=== PATIENT | female | born 1965 | race Hispanic/Latino ===

== ENCOUNTER 2018-03-25 09:44 | Emergency (ER) | payer MEDICAID ==
[2018-03-25 09:44] VITALS: BMI 30.8
[2018-03-25 10:08] VITALS: TEMP 98.5
--- NOTE | 2018-03-25 11:04 | ED PDOC ---
Arrival/HPI - General Chief Complaint: Abnormal Skin Integrity Time Seen by Provider: 03/25/18 10:30 Historian: Patient - History of Present Illness Narrative History of Present Illness (Text): 03/25/18 11:03 52-year-old female presents today with concerns for wound infection left buttocks. Patient states 4 weeks ago she had lipomas removed. Patient states she had one removed from the left buttocks and one removed from the right buttocks. Patient states over the past few days she's been having some is increasing pain over the site of the left buttocks lipoma removal. Patient states that she is concerned that there is an infection in the buttocks. Her partner states that she noticed some redness around the wound. There was no purulent discharge. Patient states that she had fever at home yesterday but denies fever today. Patient denies dizziness or weakness. No other complaints. Past Medical History - Provider Review Nursing Documentation Reviewed: Yes - Travel History Have you recently traveled outside [place] w/in the past 3 mons?: No - Infectious Disease Hx of Infectious Diseases: None - Past Medical History Past Medical History: No Previous - Cardiac Hx Cardiac Disorders: Yes Hx Hypertension: Yes - Pulmonary Hx Respiratory Disorders: Yes Hx Asthma: Yes Hx Bronchitis: Yes - Neurological Hx Neurological Disorder: No - HEENT Hx HEENT Disorder: No - Renal Hx Renal Disorder: No - Endocrine/Metabolic Hx Endocrine Disorders: Yes Hx Hypothyroidism: Yes - Hematological/Oncological Hx Blood Disorders: No - Integumentary Hx Dermatological Disorder: Yes Other/Comment: LIPOMA - Musculoskeletal/Rheumatological Hx Musculoskeletal Disorders: No - Gastrointestinal Hx Gastrointestinal Disorders: Yes Hx Gastroesophageal Reflux: Yes Other/Comment: HEARTBURN - Genitourinary/Gynecological Hx Genitourinary Disorders: No - Psychiatric Hx Psychophysiologic Disorder: No Hx Substance Use: No - Surgical History Hx Hysterectomy: Yes Hx Musculoskeletal Surgery: Yes Hx Orthopedic Surgery: Yes Other/Comment: breast augmentation, LIPOMA REMOVED - Anesthesia Hx Anesthesia: Yes Hx Anesthesia Reactions: Yes (nausea) Hx Malignant Hyperthermia: No - Suicidal Assessment Feels Threatened In Home Enviroment: No Family/Social History - Physician Review Nursing Documentation Reviewed: Yes Family/Social History: Unknown Family HX Smoking Status: Current Some Days Smoker Hx Alcohol Use: No Hx Substance Use: No Allergies/Home Meds Allergies/Adverse Reactions: Allergies azithromycin [From Zithromax Z-Bo] Allergy (Verified 03/25/18 10:00) RASH Penicillins Allergy (Verified 03/25/18 10:00) RASH Home Medications: Home Meds Medication Instructions Recorded Confirmed Albuterol HFA [Ventolin HFA 90 1 puff IH ASDIR PRN 08/19/17 03/25/18 mcg/actuation (8 g)] Losartan Potassium [Losartan 25 mg PO DAILY 03/25/18 03/25/18 Potassium] Review of Systems - Review of Systems Constitutional: Fevers (once yesterday; no fever today). absent: Fatigue Respiratory: absent: SOB, Cough Cardiovascular: absent: Chest Pain, Palpitations Gastrointestinal: absent: Abdominal Pain, Nausea, Vomiting Skin: Rash, Skin Lesions Neurological: absent: Headache, Dizziness Psychiatric: absent: Anxiety, Depression Physical Exam Vital Signs Reviewed: Yes Vital Signs Temp Pulse Resp BP Pulse Ox 03/25/18 10:02 98.5 F 100 H 16 136/86 97 Temperature: Afebrile Blood Pressure: Normal Pulse: Tachycardic Respiratory Rate: Normal Appearance: Positive for: Well-Appearing, Non-Toxic, Comfortable Pain Distress: None Mental Status: Positive for: Alert and Oriented X 3 - Systems Exam Head: Present: Atraumatic Neck: Present: Normal Range of Motion Respiratory/Chest: Present: Clear to Auscultation Cardiovascular: Present: Regular Rate and Rhythm Upper Extremity: Present: Normal ROM Lower Extremity: Present: Normal ROM Neurological: Present: GCS=15, Speech Normal Skin: Present: Warm, Dry, Other (left buttock; there is a 4cm linear scar noted with minimal surrounding erythema. no abscess noted. no purulent discharge. minimal tenderness. ) Psychiatric: Present: Alert, Oriented x 3 Medical Decision Making ED Course and Treatment: 03/25/18 11:06 52yr old female presenting with concerns for wound infection. states she has fever at home yesterday. afebrile. no distress. stable vitals. cbc: wnl cmp: wnl bactrim given PO toradol IM pt with slight erythema around wound; no purulent discharge. will d/c home on bactrim; advised f/u with surgeon within the next 2 days. advised immediate return if symptoms worsen,persist or if new symptoms develop. Patient verbalizes understanding of discharge instructions and need for immediate followup. Impression: Wound infection Tylenol every 4 hours as needed for pain Bactrim 1 tablet twice daily 7 days Apply bacitracin twice daily to the affected area Follow-up with the surgeon within the next 2 days Follow-up with the wound care center within the next 2 days Follow-up primary care physician within the next 2 days Return immediately if symptoms worsen persist or if new concerning symptoms develop - Lab Interpretations Lab Results: 03/25/18 11:30 03/25/18 11:30 Lab Results 03/25/18 11:30: WBC 5.4, RBC 4.20, Hgb 12.7, Hct 37.6, MCV 89.5, MCH 30.2, MCHC 33.8, RDW 12.0, Plt Count 176, MPV 9.8, Gran % 52.5, Lymph % (Auto) 38.7 H, [place] % (Auto) 7.3 H, Eos % (Auto) 1.3 L, Baso % (Auto) 0.2, Gran # 2.81, Lymph # (Auto) 2.1, [place] # (Auto) 0.4, Eos # (Auto) 0.1, Baso # (Auto) 0.01 03/25/18 11:30: Sodium 140, Potassium 4.1, Chloride 105, Carbon Dioxide 29, Anion Gap 10, BUN 12, Creatinine 0.5 L, Est GFR ( Amer) > 60, Est GFR ( Non-Af Amer) > 60, Random Glucose 99, Calcium 9.9, Total Bilirubin 0.5, AST 26, ALT 39, Alkaline Phosphatase 87, Total Protein 7.1, Albumin 4.1, Globulin 3.0, Albumin/Globulin Ratio 1.4 - Medication Orders Current Medication Orders: Discontinued Medications Ketorolac Tromethamine (Toradol) 30 mg IVP STAT STA Stop: 03/25/18 13:04 Last Admin: 03/25/18 13:06 Dose: 30 mg MAR Pain Assessment Document 03/25/18 13:06 EQ (Rec: 03/25/18 13:06 EQ [id number]) Pain Reassessment Is this a pain reassessment? No Sleep Is patient sleeping during reassessment? No Presence of Pain Presence of Pain Yes IVP Administration Document 03/25/18 13:06 EQ (Rec: 03/25/18 13:06 EQ [id number]) Charges for Administration # of IVP Administrations 1 Trimethoprim/Sulfamethoxazole (Bactrim Ds Tab) 1 tab PO STAT STA PRN Reason: Protocol Stop: 03/25/18 12:16 Last Admin: 03/25/18 13:02 Dose: 1 tab Disposition/Present on Arrival - Present on Arrival Any Indicators Present on Arrival: No History of DVT/PE: No History of Uncontrolled Diabetes: No Urinary Catheter: No History of Decub. Ulcer: No History Surgical Site Infection Following: None - Disposition Have Diagnosis and Disposition been Completed?: Yes Diagnosis: Wound infection Disposition: HOME/ ROUTINE Disposition Time: 11:01 Patient Plan: Discharge Patient Problems: Current Active Problems Problem Status Onset Wound infection Acute Condition: GOOD Discharge Instructions (ExitCare): Wound Infection Additional Instructions: Tylenol every 4 hours as needed for pain Bactrim 1 tablet twice daily 7 days Apply bacitracin twice daily to the affected area Follow-up with the surgeon within the next 2 days Follow-up with the wound care center within the next 2 days Follow-up primary care physician within the next 2 days Return immediately if symptoms worsen persist or if new concerning symptoms develop Prescriptions: Sulfamethoxazole/Trimethoprim [Bactrim DS 800 mg-160 mg] 1 tab PO BID #14 tab Referrals: [facility] [Outside] - Follow up with primary Tom Qiu MD [Staff Provider] - Follow up with primary Forms: [employer] ([place]ian), WORK NOTE
[2018-03-25 11:47] LABS: BASO # 0.01 K/mm3 (0.0-2.0); BASO % 0.2 % (0.0-3.0); EOS # 0.1 (0.0-0.7); EOS % 1.3 % (1.5-5.0); GRAN # 2.81 (1.4-6.5); GRAN % 52.5 % (50.0-68.0); HEMOGLOBIN 12.7 g/dL (12.0-16.0); LYMPH # 2.1 (1.2-3.4); LYMPH % 38.7 % (22.0-35.0); MEAN CELL VOLUME 89.5 fl (80.0-105.0); MEAN CORPUSCULAR HEMOGLOBIN 30.2 pg (25.0-35.0); MEAN CORPUSCULAR HGB CONC 33.8 g/dl (31.0-37.0); MEAN PLATELET VOLUME 9.8 fl (7.0-11.0); MONO # 0.4 (0.1-0.6); MONO % 7.3 % (1.0-6.0); RBC 4.2 10^6/uL (3.5-6.1); WHITE BLOOD COUNT 5.4 10^3/ul (4.5-11.0)
[2018-03-25 11:56] LABS: ALB/GLOB RATIO 1.4 (1.1-1.8); ALBUMIN 4.1 g/dL (3.0-4.8); ALT/SGPT 39 U/L (7-56); AST/SGOT 26 U/L (14-36); BLOOD UREA NITROGEN 12 mg/dL (7-21); CALCIUM 9.9 mg/dL (8.4-10.5); GFR NON-AFRICAN AMERICAN > 60
[2018-03-25] MEDS ORDERED: Tmp-Smz 800 mg-160 mg DS Tab PO STA (12:15)
[2018-03-25 13:31] VITALS: BP 131/82; PULSE 89; RESP 18; O2SAT 99
== END 2018-03-25 13:30 | disposition home or self-care (01) ==
LOC: ED 09:44
DX: T81.4XXA Infection following a procedure, initial encounter (principal); Y83.8 Other surgical procedures as the cause of abnormal reaction of the patient, or of later complication, without mention of misadventure at the time of the procedure; Y92.89 Other specified places as the place of occurrence of the external cause
CPT/HCPCS: 80053; 85025; 87040; 96374; 99283; J1885

== ENCOUNTER 2018-06-10 19:12 | Observation (INO) | payer MEDICAID ==
[2018-06-10 19:48] LABS: BASO # 0.02 K/mm3 (0.0-2.0); BASO % 0.3 % (0.0-3.0); EOS # 0.2 (0.0-0.7); EOS % 2.5 % (1.5-5.0); GRAN # 3.84 (1.4-6.5); LYMPH % 40.2 % (22.0-35.0); MEAN CELL VOLUME 90.4 fl (80.0-105.0); MEAN CORPUSCULAR HEMOGLOBIN 30.4 pg (25.0-35.0); MEAN CORPUSCULAR HGB CONC 33.6 g/dl (31.0-37.0); MEAN PLATELET VOLUME 10.1 fl (7.0-11.0); MONO # 0.5 (0.1-0.6); RBC 4.28 10^6/uL (3.5-6.1); RED CELL DISTRIBUTION WIDTH 13.4 % (11.5-14.5); WHITE BLOOD COUNT 7.5 10^3/uL (4.5-11.0)
[2018-06-10 19:52] LABS: INR 0.97; PARTIAL THROMBOPLASTIN TIME 26.9 Seconds (25.1-36.5)
[2018-06-10 19:54] LABS: BLOOD UREA NITROGEN 22 mg/dL (7-21); CALCIUM 9.3 mg/dL (8.4-10.5); GFR NON-AFRICAN AMERICAN > 60
[2018-06-10 19:57] LABS: ALB/GLOB RATIO 1.3 (1.1-1.8); ALBUMIN 4.2 g/dL (3.0-4.8); ALT/SGPT 27 U/L (7-56); AST/SGOT 30 U/L (14-36)
[2018-06-10] MEDS: Sodium Chloride 0.9% 1,000 ML IV SCH (20:07)
--- NOTE | 2018-06-10 20:18 | ED PDOC ---
Arrival/HPI - General Chief Complaint: Chest Pain Time Seen by Provider: 06/10/18 19:18 Historian: Patient - History of Present Illness Narrative History of Present Illness (Text): 06/10/18 19:25 Asha Jacobson is a 52 year old female, whose past medical history includes GERD, migraines, and hypothyroidism, who presents to the Emergency department complaining of chest pain. Patient states she has been experiencing chest pain with associated palpitations today. Patient was seen by her PMD for similar complaints and given a prescription for an echocardiogram. Patient denies any fever, chills, nausea, vomiting, diarrhea, urinary symptoms, back pain, neck pain, headache, dizziness, or any other complaints. Symptom Onset: Gradual Symptom Course: Unchanged Activities at Onset: Light Context: Home Past Medical History - Provider Review Nursing Documentation Reviewed: Yes - Infectious Disease Hx of Infectious Diseases: None - Past Medical History Past Medical History: No Previous - Cardiac Hx Pacemaker: No - Pulmonary Hx Respiratory Disorders: Yes Hx Asthma: Yes Hx Bronchitis: Yes - Neurological Hx Paralysis: No - HEENT Hx HEENT Disorder: No - Renal Hx Renal Disorder: No - Endocrine/Metabolic Hx Endocrine Disorders: Yes Hx Hypothyroidism: Yes - Hematological/Oncological Hx Blood Transfusions: No - Integumentary Hx Dermatological Disorder: Yes Other/Comment: LIPOMA - Musculoskeletal/Rheumatological Hx Musculoskeletal Disorders: No - Gastrointestinal Hx Gastrointestinal Disorders: Yes Hx Gastroesophageal Reflux: Yes Other/Comment: HEARTBURN - Genitourinary/Gynecological Hx Genitourinary Disorders: No - Psychiatric Hx Emotional Abuse: No Hx Physical Abuse: No Hx Substance Use: No - Surgical History Hx Hysterectomy: Yes Hx Musculoskeletal Surgery: Yes Hx Orthopedic Surgery: Yes Other/Comment: breast augmentation, LIPOMA REMOVED - Anesthesia Hx Anesthesia Reactions: Yes (nausea) Hx Malignant Hyperthermia: No - Suicidal Assessment Feels Threatened In Home Enviroment: No Family/Social History - Physician Review Nursing Documentation Reviewed: Yes Family/Social History: Unknown Family HX Smoking Status: Current Some Days Smoker Hx Alcohol Use: No Hx Substance Use: No Allergies/Home Meds Allergies/Adverse Reactions: Allergies azithromycin [From Zithromax Z-Bo] Allergy (Verified 06/10/18 19:19) RASH Penicillins Allergy (Verified 06/10/18 19:19) RASH Home Medications: Home Meds Medication Instructions Recorded Confirmed Albuterol HFA [Ventolin HFA 90 1 puff IH ASDIR PRN 08/19/17 06/11/18 mcg/actuation (8 g)] Losartan Potassium 25 mg PO DAILY 03/25/18 06/11/18 Methimazole [Tapazole] 5 mg PO DAILY 04/22/18 06/11/18 Alprazolam [Xanax] 2 tab PO HS 06/11/18 06/11/18 Review of Systems - Physician Review All systems were reviewed & negative as marked: Yes - Review of Systems Constitutional: Normal. absent: Fevers Eyes: Normal ENT: Normal Respiratory: Normal. absent: SOB, Cough Cardiovascular: Chest Pain, Palpitations Gastrointestinal: Normal. absent: Abdominal Pain, Diarrhea, Nausea, Vomiting Genitourinary Female: Normal. absent: Dysuria, Frequency, Hematuria, Urine Output Changes Musculoskeletal: Normal. absent: Back Pain, Neck Pain Skin: Normal. absent: Rash Neurological: Normal. absent: Headache, Dizziness Endocrine: Normal Hemo/Lymphatic: Normal Psychiatric: Normal Physical Exam Vital Signs Reviewed: Yes Vital Signs Temp Pulse Resp BP Pulse Ox 06/10/18 19:32 98.4 F 84 18 139/92 H 98 Temperature: Afebrile Blood Pressure: Normal Pulse: Regular Respiratory Rate: Normal Appearance: Positive for: Well-Appearing, Non-Toxic, Comfortable Pain Distress: None Mental Status: Positive for: Alert and Oriented X 3 - Systems Exam Head: Present: Atraumatic, Normocephalic Pupils: Present: PERRL Extroacular Muscles: Present: EOMI Conjunctiva: Present: Normal Mouth: Present: Moist Mucous Membranes Neck: Present: Normal Range of Motion Respiratory/Chest: Present: Clear to Auscultation, Good Air Exchange. No: Respiratory Distress, Accessory Muscle Use Cardiovascular: Present: Regular Rate and Rhythm, Normal S1, S2. No: Murmurs Abdomen: No: Tenderness, Distention, Peritoneal Signs Back: Present: Normal Inspection Upper Extremity: Present: Normal Inspection. No: Cyanosis, Edema Lower Extremity: Present: Normal Inspection. No: Edema Neurological: Present: GCS=15, CN II-XII Intact, Speech Normal Skin: Present: Warm, Dry, Normal Color. No: Rashes Psychiatric: Present: Alert, Oriented x 3, Normal Insight, Normal Concentration Medical Decision Making ED Course and Treatment: 06/10/18 19:25 Impression: 52 year old female complaining of chest pain and palpitations. Plan: -- EKG -- Chest X-ray -- Labs, cardiac enzymes, T4, TSH -- Urinalysis -- IV fluids -- Reassess and disposition Prior Visits: Notes and results from previous visits were reviewed. Progress Notes: Reviewed EKG, NSR at 84 bpm. Non-specific ST/T wave changes. 06/10/18 23:00 Chest X-ray reviewed shows, no acute processes. 06/10/18 23:10 Case discussed with medical collections and Dr. Doyle, who agrees with plan. Pt will go to remote telemetry observation for chest pain under the hospitalist service. - Lab Interpretations Lab Results: 06/10/18 19:30 06/10/18 19:30 Lab Results 06/10/18 19:30: PT 11.0, INR 0.97, APTT 26.9 06/10/18 19:30: Sodium 137, Potassium 4.8, Chloride 105, Carbon Dioxide 25, Anion Gap 11, BUN 22 H, Creatinine 0.6 L, Est GFR ( Amer) > 60, Est GFR (Non-Af Amer) > 60, Random Glucose 112 H, Calcium 9.3, Total Bilirubin 0.5, AST 30, ALT 27, Alkaline Phosphatase 111, Lactate Dehydrogenase 620, Total Creatine Kinase 69, Troponin I Pending, Total Protein 7.5, Albumin 4.2, Globulin 3.3, Albumin/Globulin Ratio 1.3 06/10/18 19:30: WBC 7.5, RBC 4.28, Hgb 13.0, Hct 38.7, MCV 90.4, MCH 30.4, MCHC 33.6, RDW 13.4, Plt Count 215, MPV 10.1, Gran % 51.0, Lymph % (Auto) 40.2 H, [place] % (Auto) 6.0, Eos % (Auto) 2.5, Baso % (Auto) 0.3, Gran # 3.84, Lymph # (Auto) 3.0, [place] # (Auto) 0.5, Eos # (Auto) 0.2, Baso # (Auto) 0.02 I have reviewed the lab results: Yes - RAD Interpretation Radiology Orders: 06/10/18 19:29 CHEST PORTABLE [RAD] Stat Ad Terminal Makeup Operator: ED Physician - EKG Interpretation Interpreted by ED Physician: Yes Type: 12 lead EKG - Medication Orders Current Medication Orders: Sodium Chloride (Sodium Chloride 0.9%) 1,000 mls @ 80 mls/hr IV .[id number] [id number] Last Admin: 06/10/18 20:07 Dose: 80 mls/hr eMAR Start Stop Document 06/10/18 20:07 CNR (Rec: 06/10/18 20:07 CNR [id number]) Intravenous Solution Start Date 06/10/18 Start Time 20:07 - Scribe Statement The provider has reviewed the documentation as recorded by the Rony Ferguson Provider Scribe Attestation: All medical record entries made by the Rony were at my direction and personally dictated by me. I have reviewed the chart and agree that the record accurately reflects my personal performance of the history, physical exam, medical decision making, and the department course for this patient. I have also personally directed, reviewed, and agree with the discharge instructions and disposition. Disposition/Present on Arrival - Present on Arrival Any Indicators Present on Arrival: No History of DVT/PE: No History of Uncontrolled Diabetes: No Urinary Catheter: No History of Decub. Ulcer: No History Surgical Site Infection Following: None - Disposition Have Diagnosis and Disposition been Completed?: Yes Diagnosis: Chest pain Disposition Time: 23:10 Condition: FAIR
[2018-06-10 20:27] LABS: T4 10.5 ug/dL (5.5-11.0)
[2018-06-10 20:28] LABS: TROPONIN I 0.01 ng/mL
[2018-06-10 21:42] LABS: PH,URINE 6.5 (4.7-8.0); URINE BILIRUBIN NEGATIVE (NEGATIVE); URINE BLOOD NEGATIVE (NEGATIVE); URINE GLUCOSE (UA) NEGATIVE (NEGATIVE); URINE LEUKOCYTE ESTERASE NEGATIVE Leu/uL (NEGATIVE); URINE PROTEIN NEGATIVE mg/dL (<30 mg/dL); URINE UROBILINOGEN 0.2 E.U./dL (<1 E.U./dL)
[2018-06-10 21:45] LABS: URINE APPEARANCE CLEAR (CLEAR); URINE COLOR YELLOW (YELLOW)
[2018-06-10] MEDS ORDERED: Aspirin 325 mg EC Tablets PO STA (21:58)
--- NOTE | 2018-06-11 00:40 | CP.PCM.HP ---
<Ailyn Mckee - Last Filed: 06/11/18 05:53> History of Present Illness - History of Present Illness History of Present Illness: Ailyn Mckee, PGY1 Hospital H&P This is a 52 year old female with PMH of anxiety, GERD, migraines, asthma, right leg sciatica, HTN and hyperthyroidism presenting to the ED for one day history of chest pressure. Patient states she was diagnosed with hyperthyroidism 2 months ago by her PMD and started on 5mg methimazole and saw her meter tester polyphase yesterday who increased patient's methimazole to 20mg daily and started patient on propanolol 20mg BID. Patient states she started her first dose of both medications earlier today afternoon and within an hour began to feel chest pressure that was characterized as dull, non radiating, intermittnat, rated 8/10, better with warm compresses and worse with deep breathing. She denies ever having similar pain past. Symptoms are associated with nausea and vomiting x2 non bloody. She also states she was diagnosed with strep throat one week ago and treated with clindamycin. She denies CP, SOB, headaches, fevers, chills, abdominal pain, diarrhea, constipation, numbness, tingling, swelling, urinary complaints, recent travel, trauma and lifestyle change. 12 point ROS noted here, otherwise unremarkable. PMD: Dr. Robison at [facility] Medical Record Transcriber: Dr. Rm PMH: anxiety, GERD, migraines, asthma, right leg sciatica and hyperthyroidism SH: 1-2 ciggs/per day for the last 5 years, denies drinking and drugs Sx: hysterectomy 3 years ago, metal plate in right foot 3 months ago All: PCN, azithromycin. Gets rash FH: denies Meds: methimazole, xanax, losartan Present on Admission - Present on Admission Any Indicators Present on Admission: No Past Patient History - Infectious Disease Hx of Infectious Diseases: None - Past Medical History & Family History Past Medical History?: Yes - Past Social History Smoking Status: Current Some Days Smoker - CARDIAC Hx Pacemaker: No - PULMONARY Hx Respiratory Disorders: Yes Hx Asthma: Yes Hx Bronchitis: Yes - NEUROLOGICAL Hx Paralysis: No - HEENT Hx HEENT Problems: No - RENAL Hx Chronic Kidney Disease: No - ENDOCRINE/METABOLIC Hx Endocrine Disorders: Yes Hx Hypothyroidism: Yes - HEMATOLOGICAL/ONCOLOGICAL Hx Blood Transfusions: No - INTEGUMENTARY Hx Dermatological Problems: Yes Other/Comment: LIPOMA - MUSCULOSKELETAL/RHEUMATOLOGICAL Hx Musculoskeletal Disorders: No - GASTROINTESTINAL Hx Gastrointestinal Disorders: Yes Hx Gastroesophageal Reflux: Yes Other/Comment: HEARTBURN - GENITOURINARY/GYNECOLOGICAL Hx Genitourinary Disorders: No - PSYCHIATRIC Hx Emotional Abuse: No Hx Physical Abuse: No Hx Substance Use: No - SURGICAL HISTORY Hx Hysterectomy: Yes Hx Musculoskeletal Surgery: Yes Hx Orthopedic Surgery: Yes Other/Comment: breast augmentation, LIPOMA REMOVED - ANESTHESIA Hx Anesthesia Reactions: Yes (nausea) Hx Malignant Hyperthermia: No Meds Allergies/Adverse Reactions: Allergies Allergy/AdvReac Type Severity Reaction Status Date / Time azithromycin Allergy RASH Verified 06/10/18 19:19 [From Zithromax Z-Bo] Penicillins Allergy RASH Verified 06/10/18 19:19 Physical Exam - Constitutional Appears: No Acute Distress - Head Exam Head Exam: ATRAUMATIC, NORMAL INSPECTION - Eye Exam Eye Exam: EOMI Pupil Exam: PERRL - ENT Exam ENT Exam: Mucous Membranes Moist - Respiratory Exam Respiratory Exam: Clear to Auscultation Bilateral. absent: Accessory Muscle Use, Wheezes, Respiratory Distress - Cardiovascular Exam Cardiovascular Exam: REGULAR RHYTHM, +S1, +S2 - GI/Abdominal Exam GI & Abdominal Exam: Normal Bowel Sounds, Soft. absent: Distended, Firm, Guarding, Tenderness - Extremities Exam Extremities exam: Positive for: normal inspection, pedal pulses present. Negative for: calf tenderness - Neurological Exam Neurological exam: Alert, Oriented x3 - Skin Skin Exam: Normal Color, Warm Results - Vital Signs Recent Vital Signs: Last Vital Signs Temp 98.4 F 06/10/18 19:32 Pulse 72 06/10/18 23:29 Resp 17 06/10/18 23:29 BP 135/82 06/10/18 23:29 Pulse Ox 97 06/10/18 23:29 - Labs Result Diagrams: 06/10/18 19:30 06/10/18 19:30 Labs: Laboratory Results - last 24 hr 06/10/18 06/10/18 06/10/18 19:30 19:30 19:30 WBC 7.5 RBC 4.28 Hgb 13.0 Hct 38.7 MCV 90.4 MCH 30.4 MCHC 33.6 RDW 13.4 Plt Count 215 MPV 10.1 Gran % 51.0 Lymph % (Auto) 40.2 H [place] % (Auto) 6.0 Eos % (Auto) 2.5 Baso % (Auto) 0.3 Gran # 3.84 Lymph # (Auto) 3.0 [place] # (Auto) 0.5 Eos # (Auto) 0.2 Baso # (Auto) 0.02 PT 11.0 INR 0.97 APTT 26.9 Sodium 137 Potassium 4.8 Chloride 105 Carbon Dioxide 25 Anion Gap 12 BUN 22 H Creatinine 0.6 L Est GFR ( Amer) > 60 Est GFR (Non-Af Amer) > 60 Random Glucose 112 H Calcium 9.3 Total Bilirubin 0.5 AST 30 ALT 27 Alkaline Phosphatase 111 Lactate Dehydrogenase 620 Total Creatine Kinase 69 Troponin I 0.01 Total Protein 7.5 Albumin 4.2 Globulin 3.3 Albumin/Globulin Ratio 1.3 Thyroxine (T4) TSH 3rd Generation Urine Color Urine Appearance Urine pH Ur Specific [place] Urine Protein Urine Glucose (UA) Urine Ketones Urine Blood Urine Nitrate Urine Bilirubin Urine Urobilinogen Ur Leukocyte Esterase 06/10/18 06/10/18 19:30 21:38 WBC RBC Hgb Hct MCV MCH MCHC RDW Plt Count MPV Gran % Lymph % (Auto) [place] % (Auto) Eos % (Auto) Baso % (Auto) Gran # Lymph # (Auto) [place] # (Auto) Eos # (Auto) Baso # (Auto) PT INR APTT Sodium Potassium Chloride Carbon Dioxide Anion Gap BUN Creatinine Est GFR ( Amer) Est GFR (Non-Af Amer) Random Glucose Calcium Total Bilirubin AST ALT Alkaline Phosphatase Lactate Dehydrogenase Total Creatine Kinase Troponin I Total Protein Albumin Globulin Albumin/Globulin Ratio Thyroxine (T4) 10.5 TSH 3rd Generation < 0.02 L Urine Color Yellow Urine Appearance Clear Urine pH 6.5 Ur Specific [place] 1.020 Urine Protein Negative Urine Glucose (UA) Negative Urine Ketones Negative Urine Blood Negative Urine Nitrate Negative Urine Bilirubin Negative Urine Urobilinogen 0.2 Ur Leukocyte Esterase Negative Assessment & Plan - Assessment and Plan (Free Text) Assessment: This is a 52 year old female with PMH of anxiety, GERD, migraines, asthma, right leg sciatica, HTN and hyperthyroidism presenting to the ED for one day history of chest pressure. Plan: Chest pressure -initial EKG showed NSR at 84bpm with no ST depression/elevations -initial troponin <0.01 -serial EKG, troponins pending -lipid panel, A1c pending -echo pending -ASA 81, lipitor 20 -Cardio on consult, Dr. Brennan Hx of hyperthyroidism -low TSH, high/normal T4 -continue methimazole -holding propanolol -endo on consult, Dr. Russell Hx of anxiety -continue xanax Hx of asthma -duonebs prn Hx of HTN -continue losartan PPX with SCD and pepcid HHD Patient seen and case discussed with attending, Dr. Doyle <John Doyle - Last Filed: 06/12/18 07:01> Results - Vital Signs Recent Vital Signs: Last Vital Signs Temp 97.6 F 06/12/18 06:00 Pulse 74 06/12/18 06:00 Resp 20 06/12/18 06:00 BP 124/82 06/12/18 06:00 Pulse Ox 96 06/12/18 06:00 - Labs Result Diagrams: 06/12/18 06:00 06/12/18 06:00 Labs: Laboratory Results - last 24 hr 06/11/18 06/11/18 06/12/18 05:30 12:05 06:00 WBC 4.7 RBC 4.05 Hgb 12.3 Hct 37.2 MCV 91.9 MCH 30.4 MCHC 33.1 RDW 13.0 Plt Count 163 MPV 10.3 Gran % 54.5 Lymph % (Auto) 37.2 H [place] % (Auto) 5.1 Eos % (Auto) 3.0 Baso % (Auto) 0.2 Gran # 2.55 Lymph # (Auto) 1.7 [place] # (Auto) 0.2 Eos # (Auto) 0.1 Baso # (Auto) 0.01 Sodium Potassium Chloride Carbon Dioxide Anion Gap BUN Creatinine Est GFR ( Amer) Est GFR (Non-Af Amer) Random Glucose Hemoglobin A1c 5.1 Calcium Total Bilirubin AST ALT Alkaline Phosphatase Total Protein Albumin Globulin Albumin/Globulin Ratio Free T4 1.98 06/12/18 06:00 WBC RBC Hgb Hct MCV MCH MCHC RDW Plt Count MPV Gran % Lymph % (Auto) [place] % (Auto) Eos % (Auto) Baso % (Auto) Gran # Lymph # (Auto) [place] # (Auto) Eos # (Auto) Baso # (Auto) Sodium 141 Potassium 3.9 Chloride 109 H Carbon Dioxide 28 Anion Gap 8 L BUN 14 Creatinine 0.6 L Est GFR ( Amer) > 60 Est GFR (Non-Af Amer) > 60 Random Glucose 93 Hemoglobin A1c Calcium 9.5 Total Bilirubin 0.4 AST 21 ALT 24 Alkaline Phosphatase 97 Total Protein 6.6 Albumin 3.7 Globulin 2.9 Albumin/Globulin Ratio 1.3 Free T4 Attending/Attestation - Attestation I have personally seen and examined this patient.: Yes I have fully participated in the care of the patient.: Yes I have reviewed all pertinent clinical information: Yes
[2018-06-11] MEDS ORDERED: Albuterol-Ipratrop 3 mg / 0.5 (3 ml) UD IH PRN (00:47)
[2018-06-11 05:45] LABS: BASO # 0.02 K/mm3 (0.0-2.0); BASO % 0.4 % (0.0-3.0); EOS # 0.2 (0.0-0.7); GRAN # 2.23 (1.4-6.5); GRAN % 46.5 % (50.0-68.0); HEMOGLOBIN 12.6 g/dL (12.0-16.0); LYMPH # 2.1 (1.2-3.4); LYMPH % 43.1 % (22.0-35.0); MEAN CORPUSCULAR HEMOGLOBIN 30.6 pg (25.0-35.0); MEAN CORPUSCULAR HGB CONC 33.6 g/dl (31.0-37.0); MEAN PLATELET VOLUME 9.6 fl (7.0-11.0); MONO # 0.3 (0.1-0.6); RBC 4.12 10^6/uL (3.5-6.1); RED CELL DISTRIBUTION WIDTH 13.4 % (11.5-14.5); WHITE BLOOD COUNT 4.8 10^3/uL (4.5-11.0)
[2018-06-11 06:09] LABS: LDL CHOLESTEROL 82 mg/dL (0-129); TROPONIN I < 0.01 ng/mL
[2018-06-11 06:11] LABS: ALB/GLOB RATIO 1.2 (1.1-1.8); ALBUMIN 3.6 g/dL (3.0-4.8); ALT/SGPT 29 U/L (7-56); AST/SGOT 22 U/L (14-36); BLOOD UREA NITROGEN 16 mg/dL (7-21); CALCIUM 9.7 mg/dL (8.4-10.5); GFR NON-AFRICAN AMERICAN > 60; HDL CHOLESTEROL 101 mg/dL (29-60)
[2018-06-11] MEDS: Sodium Chloride 0.9% 1,000 ML IV SCH ×2 (07:53→21:13)
--- NOTE | 2018-06-11 09:30 | CARD ---
APPROVED REPORT Date of service: 06/10/2018 EKG Measurement Heart [id number] <Conclusion> Normal sinus rhythm ST abnormalit in lateral leads Abnormal ECG
[2018-06-11] MEDS ORDERED: methIMAzole 5 MG TAB PO SCH (10:00)
--- NOTE | 2018-06-11 11:19 | RAD ---
Date of service: 06/10/2018 HISTORY: cp COMPARISON: Chest portable chest 04/05/2016. FINDINGS: LUNGS: No active pulmonary disease. PLEURA: No significant pleural effusion identified, no pneumothorax apparent. CARDIOVASCULAR: No aortic atherosclerotic calcification present. Normal cardiac size. No pulmonary vascular congestion. OSSEOUS STRUCTURES: No significant abnormalities. VISUALIZED UPPER ABDOMEN: Normal. OTHER FINDINGS: None. IMPRESSION: No interval acute cardiopulmonary disease appreciated.
--- NOTE | 2018-06-11 14:23 | CON ---
DATE: 06/11/2018 REASON FOR CONSULTATION: Palpitation and dizziness. HISTORY OF PRESENT ILLNESS: The patient is 52 year old female who is recently diagnosed with hyperthyroidism and her Tapazole dose was increased to 20 mg recently as well as addition of Inderal. The patient did experience lightheadedness, palpitation, nausea and vomiting after that increase in her medications and presented to the emergency room. The patient is unaware of any history of atrial fibrillation. The patient stated that the diagnosis of hyperthyroidism was made recently in her outpatient office and did not have any workup for her hyperthyroidism, such as nuclear scan or ultrasound. The patient underwent the blood test as part of screening and was taken to surgery where old screws in her right foot apparently are getting under the sole of her foot directly. SOCIAL HISTORY: Nonsmoker. MEDICATIONS: Aspirin 81 mg once a day, Cozaar 25 mg once a day, Lipitor 20 mg once a day, normal saline 80 mL an hour, Pepcid 20 mg at bedtime, Tapazole 5 mg daily, Xanax 0.5 mg three times a day. PHYSICAL EXAMINATION: GENERAL: The patient is a middle-aged female who does not appear to be in any distress. VITAL SIGNS: Blood pressure 91/27, heart rate 81, respirations 16, temperature 98.4. HEENT: Normocephalic. NECK: Diffuse goiter. CHEST: Clear. HEART: S1 and S2 regular. EXTREMITIES: No edema. LABORATORY DATA: Today's hemoglobin, hematocrit, white count and platelet count are within normal limits. Today's drug screen is positive for opioids and benzodiazepines. Today's SMA-7: Sodium 139, potassium 4.5, chloride 110, CO2 of 29, glucose 95, BUN 16, creatinine 0.8. Three sets of troponin are negative. EKG revealed sinus rhythm with nonspecific ST segment changes. TSH less than 0.02, T4 is 10.5. ASSESSMENT: 1. Hyperthyroidism. 2. Rule out paroxysmal atrial fibrillation. 3. Atypical chest pain, myocardial infarction is ruled out. 4. Hypertension. RECOMMENDATIONS: Continue current aspirin, Lipitor, albuterol, Tapazole, , as well as thyroid ultrasound. Nomi Brennan MD
[2018-06-11 14:35] VITALS: BMI 29.5
[2018-06-11] MEDS ORDERED: Pneumococcal 23-Valent Vaccine IM ONE (14:36)
[2018-06-11] MEDS ORDERED: Influenza Vaccine 60 mcg/0.5 mL SYR (4YR UP) IM ONE (14:36)
--- NOTE | 2018-06-11 15:21 | CP.PCM.PN ---
Subjective - Date & Time of Evaluation Date of Evaluation: 06/11/18 Time of Evaluation: 08:45 - Subjective Subjective: Internal medicine progress note for Dr. Hickman Patient seen and examined this am at bedside. She states she is feeling somewhat better and denies chest pain, SOB confusion, dizziness , abdominal pain, n/v, f/c and extremity pain or weakness. She does continue to endorse intermittent palpitations and chest tightness. Objective - Vital Signs/Intake and Output Vital Signs (last 24 hours): Temp Pulse Resp BP Pulse Ox 98.4 F 75 17 91/27 L 97 06/10/18 19:32 06/11/18 13:40 06/11/18 13:40 06/11/18 09:16 06/11/18 06:03 - Medications Medications: Current Medications Albuterol/Ipratropium (Duoneb 3 Mg/0.5 Mg (3 Ml) Ud) 3 ml IH Q2H PRN PRN Reason: Shortness of Breath Alprazolam (Xanax) 0.25 mg PO TID PRN; Protocol PRN Reason: Anxiety Stop: 06/18/18 10:01 Last Admin: 06/11/18 09:28 Dose: 0.25 mg Aspirin (Aspirin Chewable) 81 mg PO DAILY [facility] Last Admin: 06/11/18 09:16 Dose: 81 mg Atorvastatin Calcium (Lipitor) 20 mg PO DIN JORGE Famotidine (Pepcid) 40 mg PO HS [facility] Sodium Chloride (Sodium Chloride 0.9%) 1,000 mls @ 80 mls/hr IV .[id number] [facility] Last Admin: 06/11/18 07:53 Dose: 80 mls/hr Losartan Potassium (Cozaar) 25 mg PO DAILY [facility] Last Admin: 06/11/18 09:16 Dose: Not Given Methimazole (Tapazole) 5 mg PO BID [facility] - Labs Labs: 06/11/18 05:30 06/11/18 05:30 PT 11.0 SECONDS (9.4-12.5) 06/10/18 19:30 INR 0.97 06/10/18 19:30 APTT 26.9 Seconds (25.1-36.5) 06/10/18 19:30 - Constitutional Appears: Well, Non-toxic, No Acute Distress - Head Exam Head Exam: ATRAUMATIC, NORMOCEPHALIC - Eye Exam Eye Exam: EOMI - ENT Exam ENT Exam: Mucous Membranes Moist - Respiratory Exam Respiratory Exam: NORMAL BREATHING PATTERN - Cardiovascular Exam Cardiovascular Exam: REGULAR RHYTHM. absent: Tachycardia, Murmur - GI/Abdominal Exam GI & Abdominal Exam: Soft. absent: Distended, Guarding, Tenderness - Extremities Exam Extremities Exam: absent: Calf Tenderness, Pedal Edema - Neurological Exam Neurological Exam: Alert, Awake, Oriented x3 - Psychiatric Exam Psychiatric exam: Normal Affect, Normal Mood - Skin Skin Exam: Dry, Intact, Normal Color, Warm. absent: Diaphoretic Assessment and Plan - Assessment and Plan (Free Text) Assessment: 52 yr old female with hyperthyroidism recently started on propanolol c/o chest tightness
[2018-06-11] MEDS: methIMAzole 5 MG TAB PO SCH (18:30)
--- NOTE | 2018-06-11 19:06 | CON ---
DATE: 06/11/2018 HISTORY OF PRESENT ILLNESS: This is a 52-year-old female, admitted with sudden onset of precordial chest pain and severe and progressive shortness of breath, especially on exertion and was admitted for further workup and management and is being referred also for endocrine evaluation of known history of hyperthyroidism, diagnosed about 2 months ago. She is being seen at this time by her die set up worker, Dr. Burton, locally in [place] and was actually seen yesterday and dose adjustments were undertaken and the Tapazole was increased to 20 mg daily with propranolol started at 20 mg b.i.d. History of hypertension and dyslipidemia, history of generalized anxiety with frequent migraine headaches, history of lumbar disc disease with right leg sciatica and low back pain, history of chronic gastritis and GERD as noted. FAMILY HISTORY: Positive for hypertension and heart disease. SOCIAL HISTORY: The patient smokes a few cigarettes a day for the last few years. No other known substance use. REVIEW OF SYSTEMS: Admits to generalized body weakness with episodic bouts of dizziness and lightheadedness, worse on the day of admission, and this sudden onset of precordial chest pain with progressive shortness of breath also on exertion, also admits to occasional palpitations as noted. Her oral intake has been variable with nausea, dyspepsia, and vague upper abdominal pains. No recent alterations of bowel and urinary patterns. PHYSICAL EXAMINATION: GENERAL: This is an average built female in no apparent distress with a blood pressure of 140/80, pulse of 100 beats per minute, regular, temperature 98, respirations 20, height is 5 feet 9 inches, weight is 200 pounds. HEENT: Head, normocephalic. Eyes, anicteric with pink conjunctivae. Fundoscopy not possible at this time. Ears, nose and throat, otherwise normal. NECK: Supple. Thyroid gland is normal in size. Normal carotid bruits or cervical adenopathy. CARDIOPULMONARY: Some adynamic precordium. S1, S2, is rapid and regular. LUNGS: Clear to auscultation. ABDOMEN: Flat, soft with positive bowel sounds. EXTREMITIES: No peripheral edema. Pulses are +2 bilaterally. LABORATORY DATA: Her chemistries showed a thyroxine of 10.5 with a TSH of less than 0.02 and a free T4 of 1.98. Her chemistries, BUN 16, sodium 139, potassium 4.5, chloride 110, CO2 of 29, glucose 95, and creatinine 0.6. Her troponin is less than 0.01 ASSESSMENT: This is a 52-year-old female with subclinical hyperthyroidism noted on admission, presenting here with sudden onset of precordial chest pain with shortness of breath and currently undergoing cardiac workup and management and is being referred also for Endocrine evaluation and management. PLAN OF MANAGEMENT: We will clearly need a smaller dose titration of her Tapazole to 5 mg t.i.d. to start today, as detailed orders have been given. We will hold off huge dose adjustments to obviate her aforementioned symptoms as mentioned. However, with the current condition, she can also remain hyperadrenergic causing the aforementioned symptoms as given. We will obtain a thyroid stimulating immunoglobulin and a thyroid peroxidase antibody, which will confirm and/or indicate the presence of underlying thyroid autoimmunity. We will obtain serial chemistries and supplement accordingly as needed. We will follow. Nena Russell MD
[2018-06-12 06:41] LABS: BASO # 0.01 K/mm3 (0.0-2.0); BASO % 0.2 % (0.0-3.0); EOS # 0.1 (0.0-0.7); GRAN # 2.55 (1.4-6.5); GRAN % 54.5 % (50.0-68.0); HEMOGLOBIN 12.3 g/dL (12.0-16.0); LYMPH # 1.7 (1.2-3.4); LYMPH % 37.2 % (22.0-35.0); MEAN CELL VOLUME 91.9 fl (80.0-105.0); MEAN CORPUSCULAR HEMOGLOBIN 30.4 pg (25.0-35.0); MEAN CORPUSCULAR HGB CONC 33.1 g/dl (31.0-37.0); MEAN PLATELET VOLUME 10.3 fl (7.0-11.0); MONO # 0.2 (0.1-0.6); MONO % 5.1 % (1.0-6.0); RBC 4.05 10^6/uL (3.5-6.1); WHITE BLOOD COUNT 4.7 10^3/uL (4.5-11.0)
[2018-06-12 06:54] VITALS: BP 124/82; RESP 20; TEMP 97.6; O2SAT 96
[2018-06-12 06:59] LABS: ALB/GLOB RATIO 1.3 (1.1-1.8); ALBUMIN 3.7 g/dL (3.0-4.8); ALT/SGPT 24 U/L (7-56); AST/SGOT 21 U/L (14-36); BLOOD UREA NITROGEN 14 mg/dL (7-21); CALCIUM 9.5 mg/dL (8.4-10.5); GFR NON-AFRICAN AMERICAN > 60
[2018-06-12] MEDS: methIMAzole 5 MG TAB PO SCH (09:25)
--- NOTE | 2018-06-12 11:20 | PN ---
DATE: 06/12/2018 ENDO FOLLOWUP NOTE SUBJECTIVE: This is a 52-year-old female with known history of hyperthyroidism admitted here with sudden onset of precordial chest pain and shortness of breath and currently undergoing cardiac workup and management and is also being followed closely for metabolic management. She remains clinically euthyroid and biochemically has evidence of early subclinical hyperthyroxinemia as noted. Her repeat thyroid studies showed a T4 of 10.5 with a TSH of less than 0.02 and a free T4 of 1.98. Her chemistry showed a BUN of 14, sodium 141, potassium 3.9, chloride 109, CO2 28, glucose 93 and creatinine 0.6. ASSESSMENT This is a 52-year-old female with known history of hyperthyroidism, most likely related to underlying autoimmune thyroiditis or Graves disease, currently being followed by planning specialist in [place] with recent dose adjustments of much higher dosing of 20 mg daily for which the patient developed some adverse reactions, prompted this current admission. PLAN OF MANAGEMENT: As discussed with the patient lengthily, the imperative need to follow very closely with her planning specialist for both metabolic and clinical evaluation of the endocrine viewpoint has to be continued and undertaken at this time. For inpatient management, we will give her only a very low dosing of the Tapazole at 5 mg twice daily after meals to start today as ordered. We will obtain serial chemistries and supplement accordingly as needed. We will also obtain thyroid antibodies, which will confirm and/or indicate the presence of underlying thyroid . We will follow with you. Nena Russell MD
--- NOTE | 2018-06-12 13:15 | CP.PCM.DIS ---
<ZiggyJanelle - Last Filed: 06/13/18 13:42> Provider - Provider Date of Admission: 06/10/18 23:06 Attending physician: Blanca Wing MD Consults: 06/10/18 23:57 Cardiology Consult Routine Comment: Consulting Provider: Nomi Brennan Consulting Physician: Nomi Brennan Reason for Consult: chest pain 06/11/18 00:49 Endocrinology Consult Routine Comment: Consulting Provider: Nena Russell Consulting Physician: Nena Russell Reason for Consult: hyperthyroidism 06/11/18 13:44 Social Work Referral Routine Comment: d/c plan Physician Instructions: Reason For Exam: eval 06/11/18 14:36 Inpatient GLUING MACHINE OPERATOR ELECTRONIC Core Measures Referral Routine Comment: chest pain Physician Instructions: Reason For Exam: eval Respiratory Therapy Referral Routine Comment: smokes 1 cig a day Physician Instructions: Reason For Exam: eval Transition In Care/Readmission Reduction Routine Comment: chest pain Physician Instructions: Reason For Exam: eval Time Spent in preparation of Discharge (in minutes): 45 Hospital Course - Lab Results Lab Results: Most Recent Lab Values WBC 4.7 10^3/uL (4.5-11.0) 06/12/18 06:00 RBC 4.05 10^6/uL (3.5-6.1) 06/12/18 06:00 Hgb 12.3 g/dL (12.0-16.0) 06/12/18 06:00 Hct 37.2 % (36.0-48.0) 06/12/18 06:00 MCV 91.9 fl (80.0-105.0) 06/12/18 06:00 MCH 30.4 pg (25.0-35.0) 06/12/18 06:00 MCHC 33.1 g/dl (31.0-37.0) 06/12/18 06:00 RDW 13.0 % (11.5-14.5) 06/12/18 06:00 Plt Count 163 10^3/uL (120.0-450.0) 06/12/18 06:00 MPV 10.3 fl (7.0-11.0) 06/12/18 06:00 Gran % 54.5 % (50.0-68.0) 06/12/18 06:00 Lymph % (Auto) 37.2 % (22.0-35.0) H 06/12/18 06:00 [place] % (Auto) 5.1 % (1.0-6.0) 06/12/18 06:00 Eos % (Auto) 3.0 % (1.5-5.0) 06/12/18 06:00 Baso % (Auto) 0.2 % (0.0-3.0) 06/12/18 06:00 Gran # 2.55 (1.4-6.5) 06/12/18 06:00 Lymph # (Auto) 1.7 (1.2-3.4) 06/12/18 06:00 [place] # (Auto) 0.2 (0.1-0.6) 06/12/18 06:00 Eos # (Auto) 0.1 (0.0-0.7) 06/12/18 06:00 Baso # (Auto) 0.01 K/mm3 (0.0-2.0) 06/12/18 06:00 PT 11.0 SECONDS (9.4-12.5) 06/10/18 19:30 INR 0.97 06/10/18 19:30 APTT 26.9 Seconds (25.1-36.5) 06/10/18 19:30 Sodium 141 mmol/L (132-148) 06/12/18 06:00 Potassium 3.9 mmol/L (3.6-5.0) 06/12/18 06:00 Chloride 109 mmol/L (98-107) H 06/12/18 06:00 Carbon Dioxide 28 mmol/L (21-33) 06/12/18 06:00 Anion Gap 8 (10-20) L 06/12/18 06:00 BUN 14 mg/dL (7-21) 06/12/18 06:00 Creatinine 0.6 mg/dl (0.7-1.2) L 06/12/18 06:00 Est GFR ( Amer) > 60 06/12/18 06:00 Est GFR (Non-Af Amer) > 60 06/12/18 06:00 Random Glucose 93 mg/dL (70-110) 06/12/18 06:00 Hemoglobin A1c 5.1 % (4.2-6.5) 06/11/18 05:30 Calcium 9.5 mg/dL (8.4-10.5) 06/12/18 06:00 Phosphorus 4.3 mg/dL (2.5-4.5) 06/11/18 05:30 Magnesium 1.8 mg/dL (1.7-2.2) 06/11/18 05:30 Total Bilirubin 0.4 mg/dL (0.2-1.3) 06/12/18 06:00 AST 21 U/L (14-36) 06/12/18 06:00 ALT 24 U/L (7-56) 06/12/18 06:00 Alkaline Phosphatase 97 U/L (38-126) 06/12/18 06:00 Lactate Dehydrogenase 620 U/L (333-699) 06/10/18 19:30 Total Creatine Kinase 69 U/L (35-230) 06/10/18 19:30 Troponin I < 0.01 ng/mL 06/11/18 05:30 Total Protein 6.6 g/dL (5.8-8.3) 06/12/18 06:00 Albumin 3.7 g/dL (3.0-4.8) 06/12/18 06:00 Globulin 2.9 gm/dL 06/12/18 06:00 Albumin/Globulin Ratio 1.3 (1.1-1.8) 06/12/18 06:00 Triglycerides 73 mg/dL (35-160) 06/11/18 05:30 Cholesterol 201 mg/dL (130-200) H 06/11/18 05:30 LDL Cholesterol Direct 82 mg/dL (0-129) 06/11/18 05:30 HDL Cholesterol 101 mg/dL (29-60) H 06/11/18 05:30 Free T4 1.98 ng/dL (0.78-2.19) 06/11/18 12:05 Thyroxine (T4) 10.5 ug/dL (5.5-11.0) 06/10/18 19:30 TSH 3rd Generation < 0.02 mIU/mL (0.46-4.68) L 06/10/18 19:30 Urine Color Yellow (YELLOW) 06/10/18 21:38 Urine Appearance Clear (CLEAR) 06/10/18 21:38 Urine pH 6.5 (4.7-8.0) 06/10/18 21:38 Ur Specific [place] 1.020 (1.005-1.035) 06/10/18 21:38 Urine Protein Negative mg/dL (<30 mg/dL) 06/10/18 21:38 Urine Glucose (UA) Negative mg/dL (NEGATIVE) 06/10/18 21:38 Urine Ketones Negative mg/dL (NEGATIVE) 06/10/18 21:38 Urine Blood Negative (NEGATIVE) 06/10/18 21:38 Urine Nitrate Negative (NEGATIVE) 06/10/18 21:38 Urine Bilirubin Negative (NEGATIVE) 06/10/18 21:38 Urine Urobilinogen 0.2 E.U./dL (<1 E.U./dL) 06/10/18 21:38 Ur Leukocyte Esterase Negative [place]/uL (NEGATIVE) 06/10/18 21:38 - Hospital Course Hospital Course: Upon admission: This is a 52 year old female with PMH of anxiety, GERD, migraines, asthma, right leg sciatica, HTN and hyperthyroidism presenting to the ED for one day history of chest pressure. Patient states she was diagnosed with hyperthyroidism 2 months ago by her PMD and started on 5mg methimazole and saw her invoicing machine operator yesterday who increased patient's methimazole to 20mg daily and started patient on propanolol 20mg BID. Patient states she started her first dose of both medications earlier today afternoon and within an hour began to feel chest pressure that was characterized as dull, non radiating, intermittent, rated 8/10, better with warm compresses and worse with deep breathing. She denies ever having similar pain past. Symptoms are associated with nausea and vomiting x2 non bloody. She also states she was diagnosed with strep throat one week ago and treated with clindamycin. She denies CP, SOB, headaches, fevers, chills, abdominal pain, diarrhea, constipation, numbness, tingling, swelling, urinary complaints, recent travel, trauma and lifestyle change. 12 point ROS noted here, otherwise unremarkable. During her hospital stay the patient indicated that her SOB and chest tightness improved/ resolved. EKG, CXR, troponins all showed no abnormalities. Cardiology and endocrinology were consulted. Endocrinology recommended discontinuing Propanolol and continuing methimazole at a slightly lower dose of 5mg TID. Free T4 was within normal limits and TSH levels were low at <0.02. ECHO revealed normal ejection fraction, mild to moderate right ventricular dilation, moderate to severe tricuspid regurgitation and moderate to severe pulmonary hypertension. Patient will follow up outpatient with her Corrugated [employer] Material Sheeter Dr. Rm for thyroid US and possible further testing and with her primary care physician. Patient was nontachycardic and normotensive throughout her stay. Upon discharge patient was made aware of changes in her medications and was given the appropriate prescriptions. She was comfortable, afebrile, nontachycardic and normotensive with no complaints. Patient was deemed stable for Discharge from hospital by Dr. Hickman. Patient was called regarding ECHO results and left a message instructing her to follow up with her primary care physician regarding results. This is a brief summary of the patient's stay please see chart for further details - Date & Time of H&P Date of H&P: 06/12/18 Time of H&P: 07:35 Discharge Exam - Head Exam Head Exam: ATRAUMATIC, NORMAL INSPECTION - Eye Exam Eye Exam: EOMI - ENT Exam ENT Exam: Mucous Membranes Moist - Respiratory Exam Respiratory Exam: NORMAL BREATHING PATTERN - Cardiovascular Exam Cardiovascular Exam: REGULAR RHYTHM - GI/Abdominal Exam GI & Abdominal Exam: Soft. absent: Distended, Guarding, Tenderness - Extremities Exam Extremities exam: pedal pulses present - Neurological Exam Neurological exam: Alert, Oriented x3 - Psychiatric Exam Psychiatric exam: Normal Affect, Normal Mood - Skin Skin Exam: Dry, Intact, Normal Color, Warm Discharge Plan - Discharge Medications Prescriptions: RX: Alprazolam [Xanax] 2 tab PO HS #10 tablet RX: methIMAzole [Tapazole] 5 mg PO TID #42 tab - Follow Up Plan Condition: FAIR Disposition: HOME/ ROUTINE Instructions: Chest Pain (ED) Additional Instructions: Please follow up with your primary medical doctor in 3-5 days. Please follow up with your invoicing machine operator as outpatient for further work up of your hyperthyroidism. Please STOP taking Propranolol 40mg THREE times per day. Methimazole was decreased from 20mg to 5mg THREE TIMES PER DAY. You were given a prescription for this dose for 2 weeks. Continue other home medication as prescribed. If your symptoms worsen, please go to the nearest emergency department. Referrals: Nena Russell MD [Medical Doctor] - Gómez Burton MD [Staff Provider] - <Milton Hickman - Last Filed: 06/16/18 07:33> Provider - Provider Date of Admission: 06/10/18 23:06 Attending physician: Blanca Wing MD Consults: 06/10/18 23:57 Cardiology Consult Routine Comment: Consulting Provider: Nomi Brennan Consulting Physician: Nomi Brennan Reason for Consult: chest pain 06/11/18 00:49 Endocrinology Consult Routine Comment: Consulting Provider: Nena Russell Consulting Physician: Nena Russell Reason for Consult: hyperthyroidism 06/11/18 13:44 Social Work Referral Routine Comment: d/c plan Physician Instructions: Reason For Exam: eval 06/11/18 14:36 Inpatient GLUING MACHINE OPERATOR ELECTRONIC Core Measures Referral Routine Comment: chest pain Physician Instructions: Reason For Exam: eval Respiratory Therapy Referral Routine Comment: smokes 1 cig a day Physician Instructions: Reason For Exam: eval Transition In Care/Readmission Reduction Routine Comment: chest pain Physician Instructions: Reason For Exam: eval Hospital Course - Lab Results Lab Results: Most Recent Lab Values WBC 4.7 10^3/uL (4.5-11.0) 06/12/18 06:00 RBC 4.05 10^6/uL (3.5-6.1) 06/12/18 06:00 Hgb 12.3 g/dL (12.0-16.0) 06/12/18 06:00 Hct 37.2 % (36.0-48.0) 06/12/18 06:00 MCV 91.9 fl (80.0-105.0) 06/12/18 06:00 MCH 30.4 pg (25.0-35.0) 06/12/18 06:00 MCHC 33.1 g/dl (31.0-37.0) 06/12/18 06:00 RDW 13.0 % (11.5-14.5) 06/12/18 06:00 Plt Count 163 10^3/uL (120.0-450.0) 06/12/18 06:00 MPV 10.3 fl (7.0-11.0) 06/12/18 06:00 Gran % 54.5 % (50.0-68.0) 06/12/18 06:00 Lymph % (Auto) 37.2 % (22.0-35.0) H 06/12/18 06:00 [place] % (Auto) 5.1 % (1.0-6.0) 06/12/18 06:00 Eos % (Auto) 3.0 % (1.5-5.0) 06/12/18 06:00 Baso % (Auto) 0.2 % (0.0-3.0) 06/12/18 06:00 Gran # 2.55 (1.4-6.5) 06/12/18 06:00 Lymph # (Auto) 1.7 (1.2-3.4) 06/12/18 06:00 [place] # (Auto) 0.2 (0.1-0.6) 06/12/18 06:00 Eos # (Auto) 0.1 (0.0-0.7) 06/12/18 06:00 Baso # (Auto) 0.01 K/mm3 (0.0-2.0) 06/12/18 06:00 PT 11.0 SECONDS (9.4-12.5) 06/10/18 19:30 INR 0.97 06/10/18 19:30 APTT 26.9 Seconds (25.1-36.5) 06/10/18 19:30 Sodium 141 mmol/L (132-148) 06/12/18 06:00 Potassium 3.9 mmol/L (3.6-5.0) 06/12/18 06:00 Chloride 109 mmol/L (98-107) H 06/12/18 06:00 Carbon Dioxide 28 mmol/L (21-33) 06/12/18 06:00 Anion Gap 8 (10-20) L 06/12/18 06:00 BUN 14 mg/dL (7-21) 06/12/18 06:00 Creatinine 0.6 mg/dl (0.7-1.2) L 06/12/18 06:00 Est GFR ( Amer) > 60 06/12/18 06:00 Est GFR (Non-Af Amer) > 60 06/12/18 06:00 Random Glucose 93 mg/dL (70-110) 06/12/18 06:00 Hemoglobin A1c 5.1 % (4.2-6.5) 06/11/18 05:30 Calcium 9.5 mg/dL (8.4-10.5) 06/12/18 06:00 Phosphorus 4.3 mg/dL (2.5-4.5) 06/11/18 05:30 Magnesium 1.8 mg/dL (1.7-2.2) 06/11/18 05:30 Total Bilirubin 0.4 mg/dL (0.2-1.3) 06/12/18 06:00 AST 21 U/L (14-36) 06/12/18 06:00 ALT 24 U/L (7-56) 06/12/18 06:00 Alkaline Phosphatase 97 U/L (38-126) 06/12/18 06:00 Lactate Dehydrogenase 620 U/L (333-699) 06/10/18 19:30 Total Creatine Kinase 69 U/L (35-230) 06/10/18 19:30 Troponin I < 0.01 ng/mL 06/11/18 05:30 Total Protein 6.6 g/dL (5.8-8.3) 06/12/18 06:00 Albumin 3.7 g/dL (3.0-4.8) 06/12/18 06:00 Globulin 2.9 gm/dL 06/12/18 06:00 Albumin/Globulin Ratio 1.3 (1.1-1.8) 06/12/18 06:00 Triglycerides 73 mg/dL (35-160) 06/11/18 05:30 Cholesterol 201 mg/dL (130-200) H 06/11/18 05:30 LDL Cholesterol Direct 82 mg/dL (0-129) 06/11/18 05:30 HDL Cholesterol 101 mg/dL (29-60) H 06/11/18 05:30 Free T4 1.98 ng/dL (0.78-2.19) 06/11/18 12:05 Thyroxine (T4) 10.5 ug/dL (5.5-11.0) 06/10/18 19:30 TSH 3rd Generation < 0.02 mIU/mL (0.46-4.68) L 06/10/18 19:30 Urine Color Yellow (YELLOW) 06/10/18 21:38 Urine Appearance Clear (CLEAR) 06/10/18 21:38 Urine pH 6.5 (4.7-8.0) 06/10/18 21:38 Ur Specific [place] 1.020 (1.005-1.035) 06/10/18 21:38 Urine Protein Negative mg/dL (<30 mg/dL) 06/10/18 21:38 Urine Glucose (UA) Negative mg/dL (NEGATIVE) 06/10/18 21:38 Urine Ketones Negative mg/dL (NEGATIVE) 06/10/18 21:38 Urine Blood Negative (NEGATIVE) 06/10/18 21:38 Urine Nitrate Negative (NEGATIVE) 06/10/18 21:38 Urine Bilirubin Negative (NEGATIVE) 06/10/18 21:38 Urine Urobilinogen 0.2 E.U./dL (<1 E.U./dL) 06/10/18 21:38 Ur Leukocyte Esterase Negative [place]/uL (NEGATIVE) 06/10/18 21:38 Attending/Attestation - Attestation I have personally seen and examined this patient.: Yes I have fully participated in the care of the patient.: Yes I have reviewed all pertinent clinical information, including history, physical exam and plan: Yes
--- NOTE | 2018-06-12 13:35 | CON ---
DATE: 06/12/2018 HISTORY OF PRESENT ILLNESS: The patient is experiencing palpitation; however, no arrhythmia was reported to me on the monitor and was discussing with the charge nurse. No arrhythmia has been reported to her by the stage technician. PHYSICAL EXAMINATION: VITAL SIGNS: Blood pressure 124/82, heart rate 74, temperature 97.6, respirations 20. HEENT: Normocephalic. CHEST: Clear. HEART: S1, S2 regular. EXTREMITIES: No edema. LABORATORY DATA: Today's hemoglobin and hematocrit, white count and platelet count are within normal limit. Today's SMA-7, sodium 141, potassium 3.9, chloride 109, CO2 28, glucose 93, BUN 14, creatinine 0.6. ASSESSMENT: 1. Dilated diffuse goiter and hyperthyroidism. 2. History of palpitation. No documented atrial fibrillation so far. 3. Hypertension. RECOMMENDATIONS: Continue current Cozaar 25 mg once a day, Tapazole 5 mg once a day, aspirin 81 mg once a day and would review the echocardiographic study performed today. Nomi Brennan MD
[2018-06-12 15:29] VITALS: PULSE 79
--- NOTE | 2018-06-12 17:43 | CARD ---
APPROVED REPORT Date of service: 06/12/2018 EXAM: Two-dimensional and M-mode echocardiogram with Doppler and color Doppler. INDICATION Chest Pain 2D DIMENSIONS Left Atrium (2D)4.5 (1.6-4.0cm)IVSd0.9 (0.7-1.1cm) LVDd4.8 (3.9-5.9cm)PWd1.0 (0.7-1.1cm) LVDs3.3 (2.5-4.0cm)FS (%) 32.0 % LVEF (%)60.0 (>50%) M-Mode DIMENSIONS Aortic Root2.90 (2.2-3.7cm)Aortic Cusp Exc.1.70 (1.5-2.0cm) Aortic Valve AoV Peak Gmczwsdm086.0cm/Chip Peak GR.12mmHg Mitral Valve MV E Csdaxjbv20.4cm/sMV A Ldxgcubn44.1cm/sE/A ratio1.2 TDI Lateral E' Peak V16.30cm/sMedial E' Peak V9.26cm/sE/Lateral E'5.1 E/Medial E'8.9 Pulmonary Valve PV Peak Zviguhhl27.5cm/sPV Peak Grad.2mmHg Tricuspid Valve TR Peak Dhccqkgx736ft/sRAP [id number] Peak Gr.52mmHg [id number] LEFT VENTRICLE The left ventricle is normal size. There is normal left ventricular wall thickness. The left ventricular function is normal.EF-55-60% There is normal LV segmental wall motion. The left ventricular diastolic function is normal. No left ventricle thrombus noted on this study. There is no ventricular septal defect visualized. There is no left ventricular aneurysm. There is no mass noted in the left ventricle. RIGHT VENTRICLE The right ventricle is mildly to moderately dilated. There is normal right ventricular wall thickness. Systolic function of RV is moderately reduced. ATRIA The left atrium is mildly dilated. The right atrium is mildly dilated. The interatrial septum is intact with no evidence for an atrial septal defect. AORTIC VALVE The aortic valve is thickened but opens well. There is trace aortic regurgitation. There is no aortic valvular stenosis. There is no aortic valvular vegetation. MITRAL VALVE The mitral valve is thickened but opens well. Mitral regurgitation is mild to moderate. There is no mitral valve stenosis. There is no evidence of mitral valve prolapse. TRICUSPID VALVE The tricuspid valve leaflets are thickened , but open well. There is moderate to severe tricuspid regurgitation.RVSP-62 mmof hg There is moderate to severe pulmonary hypertension. There is no tricuspid valve stenosis. There is no tricuspid valve prolapse or vegetation. PULMONIC VALVE The pulmonary valve is normal in structure. There is no pulmonic valvular regurgitation. There is no pulmonic valvular stenosis. GREAT VESSELS The aortic root is normal in size. The ascending aorta is normal in size. The pulmonary artery is normal. The IVC is normal in size and collapses >50% with inspiration. PERICARDIAL EFFUSION There is no pleural effusion. There is no pericardial effusion. <Conclusion> The left ventricle is normal size. There is normal left ventricular wall thickness. The left ventricular function is normal.EF-55-60% The right ventricle is mildly to moderately dilated. Systolic function of RV is moderately reduced. There is trace aortic regurgitation. Mitral regurgitation is mild to moderate. There is moderate to severe tricuspid regurgitation.RVSP-62 mmof hg There is moderate to severe pulmonary hypertension. The IVC is normal in size and collapses >50% with inspiration. There is no pericardial effusion.
== END 2018-06-12 17:03 | disposition home or self-care (01) ==
LOC: ED 19:12 → ERH 23:06 → 3RSO 06-11 18:02
PROVIDERS: ADMIT Internal Medicine; ATTEND Internal Medicine
DX: R07.89 Other chest pain (principal); E05.00 Thyrotoxicosis with diffuse goiter without thyrotoxic crisis or storm; I27.20 Pulmonary hypertension, unspecified; I10 Essential (primary) hypertension; K21.9 Gastro-esophageal reflux disease without esophagitis; I36.1 Nonrheumatic tricuspid (valve) insufficiency; F17.210 Nicotine dependence, cigarettes, uncomplicated; E78.5 Hyperlipidemia, unspecified; J45.909 Unspecified asthma, uncomplicated; F41.1 Generalized anxiety disorder; Z23 Encounter for immunization
CPT/HCPCS: 36415; 71045; 80053; 80061; 81003; 82550; 83036; 83615; 83735; 84100; 84436; 84439; 84443; 84484; 85025; 85610; 85730; 90471; 90674; 90732; 93005; 93306; 96374; 99284; G0378; J2405; J7030